=== PATIENT | male | born 1955 | race Caucasian/White ===

== ENCOUNTER 2018-02-04 17:33 | Emergency (ER) | END 2018-02-04 20:20 | disposition home or self-care (01) ==

== ENCOUNTER 2018-07-10 15:55 | Inpatient (IN) | payer MEDICARE ==
[~2018-07-10] VITALS: Ht 175.3 cm; Wt 109.4 kg
[~2018-07-10 15:55] MED LIST: ASPI-817 PO; BENA10TA4 PO; CARV6.2579 PO; FURO40TA4 PO; HYDR-3980 PO; ONDA4TAB14 PO; SPIR25TA PO
--- NOTE | 2018-07-10 17:02 | ERD ---
ER Documentation Chief Complaint Chief Complaint Complains of SOB Hx of CHF and HTN HPI 63-year-old man complains of increasing shortness of breath 3 weeks but states symptoms have been getting worse over the last couple of days. Last year he was diagnosed with heart failure and states he ran out of his medications including furosemide 3 months ago. He has had increasing dyspnea on exertion, orthopnea, paroxysmal nocturnal dyspnea and lower extremity edema. Patient denies fevers or chills, no cough, no chest pain, no vomiting or diarrhea. ROS All systems reviewed and are negative except as per history of present illness. Medications Home Meds Discontinued Reported Medications Carvedilol* (Carvedilol*) 6.25 Mg Tablet, 6.25 MG PO BID, #60 TAB 02/04/18 Aspirin* (Aspirin* EC) 81 Mg Tablet.dr, 81 MG PO DAILY, TAB 02/04/18 Benazepril Hcl* (Benazepril Hcl*) 10 Mg Tablet, 10 MG PO BID, #60 TAB 02/04/18 Furosemide* (Furosemide*) 40 Mg Tablet, 40 MG PO DAILY, TAB 02/04/18 Spironolactone* (Aldactone*) 25 Mg Tablet, 25 MG PO DAILY, #30 TAB 02/04/18 Discontinued Scripts Ondansetron (Ondansetron Odt) 4 Mg Tab.rapdis, 4 MG PO Q6H PRN for NAUSEA AND/OR VOMITING, #10 TAB Prov:HERB SCOTT MD 02/04/18 Hydrocodone/Acetaminophen (Avery 10-325 Tablet) 1 Each Tablet, 1 TAB PO Q6H PRN for PAIN, #7 TAB Prov:HERB SCOTT MD 02/04/18 Allergies Allergies: Coded Allergies: No Known Allergy (Unverified , 07/10/18) PMhx/Soc Hypertension, inguinal hernia, CHF Hx Alcohol Use: Yes (years ago) Hx Tobacco Use: No FmHx Family History: No diabetes Physical Exam Vitals Vital Signs Date Temp Pulse Resp B/P (MAP) Pulse Ox O2 O2 Flow FiO2 Time Delivery Rate 07/10/18 67 18 169/98 100 Nasal 3.0 18:22 (121) Cannula 07/10/18 98.5 74 20 192/106 97 16:01 (134) Physical Exam GENERAL: Well-developed, well-nourished, dyspneic tachypnea, afebrile HEENT: Moist mucous membranes, pink conjunctiva, no cervical spine tenderness or step-off deformities, no goiter, no jaundice or icterus, extraocular movements intact without pain. No submandibular induration, and no pharyngeal erythema NEURO: Alert and oriented 3, cranial nerves II through XII intact bilaterally, pupils equal round reactive to light, no focal deficits or facial asymmetry, se nsation intact distally Strength 5/5 in upper and lower extremities bilaterally CARDIAC: Regular rate and rhythm, no murmurs rubs or gallops LUNGS: Crackles bilaterally, no wheezing or stridor ABDOMEN: Soft nontender, no guarding, no rigidity, no rebound, no psoas sign no obturator sign. SKIN: Warm and dry to touch, no abrasions, contusions, or hematomas, no lacerations, no ecchymosis, no target lesions, and without ulcers EXTREMITIES: No clubbing cyanosis, 3+ pitting edema in the lower extremities bilaterally, calves are bilaterally symmetrical, no Homans sign, no popliteal cord sign. Distal pulses equal and bilateral PSYCH: Normal affect without agitation or irritability Result Diagram: 07/10/18 1727 07/10/18 172 Results 24 hrs Laboratory Tests Test 07/10/18 17:27 White Blood Count 6.8 10^3/ul Red Blood Count 4.53 10^6/ul Hemoglobin 10.2 g/dl Hematocrit 36.5 % Mean Corpuscular Volume 80.6 fl Mean Corpuscular Hemoglobin 22.5 pg Mean Corpuscular Hemoglobin Concent 27.9 g/dl Red Cell Distribution Width 16.4 % Platelet Count 224 10^3/UL Mean Platelet Volume 10.0 fl Immature Granulocytes % 0.100 % Neutrophils % 74.0 % Lymphocytes % 14.9 % Monocytes % 8.8 % Eosinophils % 1.2 % Basophils % 1.0 % Nucleated Red Blood Cells % 0.0 /100WBC Immature Granulocytes # 0.010 10^3/ul Neutrophils # 5.0 10^3/ul Lymphocytes # 1.0 10^3/ul Monocytes # 0.6 10^3/ul Eosinophils # 0.1 10^3/ul Basophils # 0.1 10^3/ul Nucleated Red Blood Cells # 0.0 10^3/ul Sodium Level 142 mmol/L Potassium Level 4.7 mmol/L Chloride Level 102 mmol/L Carbon Dioxide Level 29 mmol/L Anion Gap 11 Blood Urea Nitrogen 19 mg/dl Creatinine 0.57 mg/dl Est Glomerular Filtrat Rate mL/min > 60 mL/min Glucose Level 103 mg/dl Calcium Level 8.9 mg/dl Total Bilirubin 1.3 mg/dl Direct Bilirubin 0.00 mg/dl Indirect Bilirubin 1.3 mg/dl Aspartate Amino Transf (AST/SGOT) 21 IU/L Alanine Aminotransferase (ALT/SGPT) 22 IU/L Alkaline Phosphatase 94 IU/L Troponin I 0.017 ng/ml B-Type Natriuretic Peptide 2200 PG/ML Total Protein 7.0 g/dl Albumin 3.8 g/dl Globulin 3.20 g/dl Albumin/Globulin Ratio 1.18 Lipase 76 U/L Current Medications Medications Dose Sig/Melanie Start Time Status Last (Trade) Ordered Route PRN Stop Time Admin Dose Reason Admin Furosemide 60 mg ONCE ONCE 07/10/18 DC 07/10/18 (Lasix) IV 17:30 17:32 07/10/18 17:31 Aspirin 324 mg ONCE ONCE 07/10/18 DC 07/10/18 (Aspirin) PO 17:30 17:33 07/10/18 17:31 Enalaprilat 1.25 mg ONCE ONCE 07/10/18 DC 07/10/18 (Vasotec Iv) IV 17:30 17:33 07/10/18 17:31 1 tab ONCE ONCE 07/10/18 DC 07/10/18 Nitroglycerin SL 17:30 17:33 07/10/18 17:31 (Nitroglyceri n (Sl Tab) 0.4 Mg) Procedures/[facility] IV line was established patient was placed on monitoring engineer rhythm strip revealed a sinus rhythm at about 70 bpm with upright P and T waves. Patient was afebrile EKG performed, read by me revealed a normal sinus rhythm at 69 bpm, normal axis, narrow QRS complex, no concerning ST elevations or depressions noted 1 view chest x-ray performed, read by me revealed cardiomegaly and bilateral pulmonary edema, no acute infiltrates, no pneumothorax I administered aspirin 324 mg p.o. for cardioprotective measures, furosemide 60 mg IV, nitroglycerin 0.4 mg sublingual, and enalapril 1.25 mg IV for d ecompensated heart failure and hypertension CBC and electrolytes were normal, liver function tests normal, troponin negative, BNP elevated over 1999 consistent with CHF Patient's breathing and hypertension has improved although he remains symptomatic he will be admitted to telemetry setting for continued diuresis Departure Diagnosis: Primary Impression: CHF (congestive heart failure) Heart failure type: combined systolic and diastolic Heart failure chronicity: acute Qualified Codes: I50.41 - Acute combined systolic (congestive) and diastolic (congestive) heart failure Additional Impressions: Hypertensive emergency Peripheral edema Condition: Fair ZAHIRA BERNAL MD Jul 10, 2018 17:02
[2018-07-10] MEDS ORDERED: ASPIRIN 81 MG TAB PO ONE (17:30)
[2018-07-10] MEDS ORDERED: FUROSEMIDE 40 MG INJ IV ONE (17:30)
[2018-07-10] MEDS ORDERED: NITROGLYCERIN (SL) 0.4 MG TAB SL ONE (17:30)
[2018-07-10] MEDS ORDERED: ENALAPRILAT 1.25 MG INJ IV ONE (17:30)
[2018-07-10] MEDS ORDERED: DOCUSATE SODIUM 100 MG CAP PO PRN (19:00)
[2018-07-10] MEDS ORDERED: ALBUTEROL/IPRATROPIUM (NEB) 3 ML AMP HHN PRN (19:00)
[2018-07-10] MEDS ORDERED: MAGNESIUM HYDROXIDE 30ML CUP PO PRN (19:00)
[2018-07-10] MEDS ORDERED: LORAZEPAM 2 MG INJ IV PRN (19:00)
[2018-07-10] MEDS ORDERED: NITROGLYCERIN (SL) 0.4 MG TAB SL PRN (19:00)
[2018-07-10] MEDS ORDERED: hydrALAzine 20 MG INJ IV PRN (19:00)
[2018-07-10] MEDS ORDERED: NACL 0.9% 3 ML SYG IV SCH (19:00)
[2018-07-10] MEDS ORDERED: ONDANSETRON 4 MG INJ IV PRN (19:00)
[2018-07-10] MEDS ORDERED: morphine 2 MG INJ IV PRN (19:00)
[2018-07-10] MEDS ORDERED: ACETAMINOPHEN 325 MG TAB PO PRN (19:00)
--- NOTE | 2018-07-10 19:51 | HP ---
DATE OF ADMISSION: 07/10/2018 IDENTIFICATION: This is a 63-year-old male. CHIEF COMPLAINT: Shortness of breath. HISTORY OF PRESENT ILLNESS: A 63-year-old male with past medical history of hypertension, likely CHF , noncompliant with medications for the last 3 months, inguinal hernia, who has been having shortness of breath. The symptoms have been going on for the last 3 to 4 weeks, but getting worse over the la st couple of days. He has noticed some more swelling in his lower extremities. He says he was hospi talized, looks like at [facility] or [facility] back in 02/2018 for what he says is hypertension and likely CHF, although he denies being told he has ever had CHF. No prior history of any stroke or heart attacks. Presently, no upper or lower GI bleeding. No fevers or chills. No nausea, vomiting. No diarrhea or constipation. No chest pain. He does have positive PND and likel y positive orthopnea. When he came in today on his chest x-ray he had moderate to severe cardiomegal y with mild aortic calcifications, but no evidence of any acute cardiopulmonary disease; however he d oes have 2+ swelling in his lower extremities and his BNP was elevated at 2200, so he came in, signs of likely CHF exacerbation. He also had a blood pressure of 192/106 and signs of hypertensive urgenc y. Again, he has not been taking any medicines for the last 3 months. PAST MEDICAL HISTORY: As stated above. ALLERGIES: NO KNOWN DRUG ALLERGIES. HOME MEDICATIONS: The patient did bring in incomplete list which did include: 1. Lasix looks like 40 mg. 2. Coreg 6.25 mg b.i.d. 3. Benazepril 10 mg. 4. Advair 250/50 inhaled b.i.d. Again he has not been taking his medicines for the last 3 months. PAST SURGICAL HISTORY: None. SOCIAL HISTORY: Former smoker, quit 15 years ago. Occasional alcohol use socially. Denies any IV d rug abuse. FAMILY HISTORY: Noncontributory. PHYSICAL EXAMINATION: VITAL SIGNS: Today, T-max 98.5, pulse 67 to 74, respirations 18 to 20, blood pressure 192 to 169 sys tolic over 106 to 98 diastolic, saturating at 100% on 3 liters nasal cannula. GENERAL: Shows the patient to be lying in bed, answering questions appropriately, in no acute distre ss. HEENT: Pupils are equal, round, react to light. Extraocular muscles are intact. NECK: Supple. No thyromegaly. LUNGS: Positive crackles bilaterally at the bases. No wheezes. CARDIOVASCULAR: S1 and S2 heard. No rubs, no gallops. ABDOMEN: Soft, nontender, nondistended. Normal bowel sounds. No rebound. No guarding. MUSCULOSKELETAL: A 2+ pitting edema bilateral lower extremities to the mid calves. NEUROLOGIC: No focal deficits. LABORATORIES: CBC is normal. The comprehensive metabolic panel was normal. Troponin is negative x1 . Lipase is normal. We mentioned the BNP. IMAGING: We mentioned the chest x-ray findings. ASSESSMENT AND PLAN: A 63-year-old male coming in with shortness of breath worse over the last few d ays with noncompliance with his medications and hypertensive urgency, signs of congestive heart failu re exacerbations. 1. Shortness of breath again secondary to congestive heart failure, most likely given his elevated B [employer]ING [employer] and lower extremity swelling. Admit the patient. Keep the head of the bed elevated greater than 30 degrees. We will put him on Lasix IV b.i.d., morphine p.r.n., oxygen as needed and nitroglycerin as needed. Put him on low-dose beta r[place] for now and get an echocardiogram. Monitor his ins and outs, daily weights as well and get PT consult as well. Get cardiology consult as well. 2. Hypertensive urgency. Again, blood pressure is slightly improved since he has been in the ER. H e will be on hydralazine p.r.n. systolic greater than 160 and also on low-dose Coreg and also IV Lasi x medication. 3. History of inguinal hernia. Continue to monitor for now. If there is any worsening of his sympt oms, we will consider surgery consult at that time. 4. Gastrointestinal prophylaxis, PPI. 5. Deep venous thrombosis prophylaxis, heparin subcutaneously. Dictated By: ANGELA PHELPS Conf#: [id number] DID#: [id number] CC: HERB TOBAR DO; ZAHIRA BERNAL MD;*End*
[2018-07-10 20:48] VITALS: PULSE 78
[2018-07-10 21:00] VITALS: BP 160/80; PULSE 73; RESP 22; Ht 175.3 cm; Wt 109.4 kg
[2018-07-10] MEDS: FUROSEMIDE 40 MG INJ IV SCH (21:00)
[2018-07-10] MEDS: HYDROCODONE/APAP (5/325) TAB PO PRN (21:41)
[2018-07-10] MEDS: ZOLPIDEM 5 MG TAB PO PRN (23:39)
[2018-07-10] MEDS: HEPARIN 5,000 UNIT/1 ML VIAL SC SCH (23:48)
[2018-07-11] VITALS (11 sets, daily range): BP systolic 113–173; BP diastolic 61–88; PULSE 59–95; RESP 18–20
[2018-07-11] MEDS: PANTOPRAZOLE (EC) 40 MG TAB PO SCH (06:01)
[2018-07-11] MEDS: FUROSEMIDE 40 MG INJ IV SCH (06:02)
--- NOTE | 2018-07-11 08:26 | PN ---
Date/Time of Note Date/Time of Note DATE: 07/11/18 TIME: 08:25 Assessment/Plan VTE Prophylaxis SCD applied (from Ns): No SCD contraindicated: other Pharmacological prophylaxis: heparin Lines/Catheters IV [facility]ter [facility]from [facility] [place]ine Lock Assessment/Plan Hospital Course S: No acute events overnight, less SOB. O: VS - see below PHYSICAL EXAMINATION: GENERAL: lying in bed, no acute distress. HEENT: Pupils are equal, round, react to light. Extraocular muscles are intact. NECK: Supple. No thyromegaly. LUNGS: less crackles bilaterally at the bases. No wheezes. CARDIOVASCULAR: S1 and S2 heard. No rubs, no gallops. ABDOMEN: Soft, nontender, nondistended. Normal bowel sounds. No rebound. No guarding. MUSCULOSKELETAL: 1-2+ pitting edema bilateral lower extremities to the mid calves. NEUROLOGIC: No focal deficits. ASSESSMENT AND PLAN: 63-year-old male coming in with shortness of breath worse over the last few days with noncompliance with his medications and hypertensive urgency, signs of congestive heart failure exacerbations. 1. Shortness of breath - slowly improving - again secondary to acute congestive heart failure - continue to keep the head of the bed elevated greater than 30 degrees, Lasix IV b.i.d., morphine p.r.n., oxygen as needed and nitroglycerin as needed. - continue low-dose beta r[place] for now and get an echocardiogram. - Monitor his ins and outs, daily weights as well and get PT consult as well. - f/u rec's from cardiology consult and ECHO results. 2. Hypertensive urgency- resolved. - continue hydralazine p.r.n. systolic greater than 160 and also on low-dose Coreg and also IV Lasix medication. 3. History of inguinal hernia. Continue to monitor for now. If there is any worsening of his symptoms, we will consider surgery consult at that time. 4. Gastrointestinal prophylaxis, PPI. 5. Deep venous thrombosis prophylaxis, heparin subcutaneously. Result Diagram: 07/11/18 0553 07/11/18 0553 Results 24hrs Laboratory Tests Test 07/10/18 17:27 07/11/18 05:53 White Blood Count 6.8 5.8 Red Blood Count 4.53 L 4.25 L Hemoglobin 10.2 #L 9.7 L Hematocrit 36.5 L 33.9 L Mean Corpuscular Volume 80.6 L 79.8 L Mean Corpuscular Hemoglobin 22.5 L 22.8 L Mean Corpuscular Hemoglobin Concent 27.9 L 28.6 L Red Cell Distribution Width 16.4 H 16.5 H Platelet Count 224 204 Mean Platelet Volume 10.0 10.3 Immature Granulocytes % 0.100 0.300 Neutrophils % 74.0 62.8 Lymphocytes % 14.9 L 23.0 Monocytes % 8.8 10.4 Eosinophils % 1.2 1.9 Basophils % 1.0 1.6 Nucleated Red Blood Cells % 0.0 0.0 Immature Granulocytes # 0.010 0.020 Neutrophils # 5.0 3.6 Lymphocytes # 1.0 1.3 Monocytes # 0.6 0.6 Eosinophils # 0.1 0.1 Basophils # 0.1 0.1 Nucleated Red Blood Cells # 0.0 0.0 Sodium Level 142 142 Potassium Level 4.7 3.9 Chloride Level 102 103 Carbon Dioxide Level 29 30 Anion Gap 11 9 Blood Urea Nitrogen 19 24 H Creatinine 0.57 L 0.63 Est Glomerular Filtrat Rate mL/min > 60 > 60 Glucose Level 103 88 Calcium Level 8.9 8.7 Total Bilirubin 1.3 Direct Bilirubin 0.00 Indirect Bilirubin 1.3 H Aspartate Amino Transf (AST/SGOT) 21 Alanine Aminotransferase (ALT/SGPT) 22 Alkaline Phosphatase 94 Troponin I 0.017 B-Type Natriuretic Peptide 2200 H Total Protein 7.0 Albumin 3.8 Globulin 3.20 Albumin/Globulin Ratio 1.18 Lipase 76 Hemoglobin A1c 6.1 H Phosphorus Level 4.1 Magnesium Level 1.8 Triglycerides Level 39 Cholesterol Level 98 L LDL Cholesterol, Calculated 57 HDL Cholesterol 33 Cholesterol/HDL Ratio 2.9 Thyroid Stimulating Hormone (TSH) 2.020 Free Thyroxine 1.37 Exam/Review of Systems Exam Vitals Vital Signs Date Temp Pulse Resp B/P (MAP) Pulse Ox O2 O2 Flow FiO2 Time Delivery Rate 07/11/18 60 08:00 07/11/18 98.2 20 158/84 95 Nasal 2.0 05:00 (108) Cannula Intake and Output 07/10/18 07/10/18 07/11/18 1515:00 23:00 07:00 IntakeIntake Total 150 ml OutputOutput Total 1000 ml 1100 ml BalanceBalance -1000 ml -950 ml Results Results 24hrs Laboratory Tests Test 07/10/18 17:27 07/11/18 05:53 White Blood Count 6.8 5.8 Red Blood Count 4.53 L 4.25 L Hemoglobin 10.2 #L 9.7 L Hematocrit 36.5 L 33.9 L Mean Corpuscular Volume 80.6 L 79.8 L Mean Corpuscular Hemoglobin 22.5 L 22.8 L Mean Corpuscular Hemoglobin Concent 27.9 L 28.6 L Red Cell Distribution Width 16.4 H 16.5 H Platelet Count 224 204 Mean Platelet Volume 10.0 10.3 Immature Granulocytes % 0.100 0.300 Neutrophils % 74.0 62.8 Lymphocytes % 14.9 L 23.0 Monocytes % 8.8 10.4 Eosinophils % 1.2 1.9 Basophils % 1.0 1.6 Nucleated Red Blood Cells % 0.0 0.0 Immature Granulocytes # 0.010 0.020 Neutrophils # 5.0 3.6 Lymphocytes # 1.0 1.3 Monocytes # 0.6 0.6 Eosinophils # 0.1 0.1 Basophils # 0.1 0.1 Nucleated Red Blood Cells # 0.0 0.0 Sodium Level 142 142 Potassium Level 4.7 3.9 Chloride Level 102 103 Carbon Dioxide Level 29 30 Anion Gap 11 9 Blood Urea Nitrogen 19 24 H Creatinine 0.57 L 0.63 Est Glomerular Filtrat Rate mL/min > 60 > 60 Glucose Level 103 88 Calcium Level 8.9 8.7 Total Bilirubin 1.3 Direct Bilirubin 0.00 Indirect Bilirubin 1.3 H Aspartate Amino Transf (AST/SGOT) 21 Alanine Aminotransferase (ALT/SGPT) 22 Alkaline Phosphatase 94 Troponin I 0.017 B-Type Natriuretic Peptide 2200 H Total Protein 7.0 Albumin 3.8 Globulin 3.20 Albumin/Globulin Ratio 1.18 Lipase 76 Hemoglobin A1c 6.1 H Phosphorus Level 4.1 Magnesium Level 1.8 Triglycerides Level 39 Cholesterol Level 98 L LDL Cholesterol, Calculated 57 HDL Cholesterol 33 Cholesterol/HDL Ratio 2.9 Thyroid Stimulating Hormone (TSH) 2.020 Free Thyroxine 1.37 Medications Medication Current Medications IV Flush (NS 3 ml) 3 ml PER PROTOCOL IV ; Start 07/10/18 at 19:00 Ondansetron HCl (Zofran Inj) 4 mg Q6H PRN IV NAUSEA/VOMITING; Start 07/10/18 at 19:00 Acetaminophen (Tylenol Tab) 650 mg Q6H PRN PO .PAIN 1-3 OR TEMP; Start 07/10/18 at 19:00 Acetaminophen/ Hydrocodone Bitart (Salyer (5/325)) 1 tab Q6H PRN PO .MOD PAIN 4- 6 Last administered on 07/10/18at 21:41; Admin Dose 1 TAB; Start 07/10/18 at 19:00 Morphine Sulfate (morphine) 2 mg Q4H PRN IV .SEVERE PAIN 7-10; Start 07/10/18 at 19:00 Docusate Sodium (Colace) 100 mg Q12H PRN PO .CONSTIPATION; Start 07/10/18 at 19:00 Magnesium Hydroxide (Milk Of Mag) 30 ml DAILY PRN PO .CONSTIPATION; Start 07/10/18 at 19:00 Pantoprazole (Protonix Tab) 40 mg DAILY@06 PO Last administered on 07/11/18at 06:01; Admin Dose 40 MG; Start 07/11/18 at 06:00 Heparin Sodium (Porcine) (Heparin (5000 Units/1ml)) 5,000 unit Q12 SC Last administered on 07/10/18at 23:48; Admin Dose 5,000 UNIT; Start 07/10/18 at 21:00 Lorazepam (Ativan) 0.5 mg Q6H PRN IV ANXIETY; Start 07/10/18 at 19:00 Albuterol/ Ipratropium (Duoneb) 3 ml Q4H RESP THERAPY PRN HHN SHORTNESS OF BREATH; Start 07/10/18 at 19:00 Levofloxacin/ Dextrose 150 ml @ 100 mls/hr DAILY IVPB ; Start 07/11/18 at 09:00 Hydralazine HCl (Apresoline) 10 mg Q6H PRN IV ELEVATED BLOOD PRESSURE; Start 07/10/18 at 19:00 Nitroglycerin (Nitroglycerin (Sl Tab) 0.4 Mg) 1 tab Q5M PRN SL ANGINA; Start 07/10/18 at 19:00 Furosemide (Lasix) 40 mg BID DIURETICS IV Last administered on 07/11/18at 06:02; Admin Dose 40 MG; Start 07/10/18 at 21:00 Carvedilol (Coreg) 3.125 mg BID PO Last administered on 07/10/18at 20:16; Admin Dose 3.125 MG; Start 07/10/18 at 19:30 Zolpidem Tartrate (Ambien) 2.5 mg HS PRN PO INSOMNIA Last administered on 07/10/18at 23:39; Admin Dose 2.5 MG; Start 07/10/18 at 19:30 ANGELA SHAH Jul 11, 2018 08:26
[2018-07-11] MEDS ORDERED: FUROSEMIDE 40 MG INJ IV SCH (09:00)
[2018-07-11] MEDS: LEVOFLOXACIN 750MG/D5W (PMX) 150 ML IVPB SCH (09:32)
[2018-07-11] MEDS: HEPARIN 5,000 UNIT/1 ML VIAL SC SCH ×2 (09:33→21:00)
--- NOTE | 2018-07-11 09:52 | RADRPT ---
Echocardiogram Report Patient Name: BRENTON CHANGPatient ID: [id number] : 1955 (63y 6m)Study Date: 07/11/2018 7:03:38 AM Gender: MAccession #: [id number] Tech: Marlee Uriarte [facility] Location: 0899 Ref.Physician: ANGELA SHAH Height(Cm): BSA: Weight(Kg): Quality: AdequateAccount #: Procedures: Echocardiographic Report: Transthoracic echocardiogram with complete 2D, M-Mode, and doppler examination. Indications: Acute Congestive Heart Failure. Measurements: 2D/M Mode Doppler Measurement Value Normal Range Measurement Value Normal Range LVIDd 2D 5.4 [ 4.2 - 5.8 ] cm AV Peak Kris 1.6 [ 100.0 - 170.0 ] cm/sec LVIDs 2D 3.6 [ 2.5 - 4.0 ] cm AV Peak PG 11.0 [ 2.0 - 9.0 ] mmHg LVPWd 2D 1.5 [ 0.6 - 1.0 ] cm LVOT Peak Kris 1.0 [ 70.0 - 110.0 ] cm/sec IVSd 2D 1.4 [ 0.6 - 1.0 ] cm LVOT Peak PG 4.0 [ 2.0 - 6.0 ] mmHg AoR Diam 2D 3.3 [ 2.6 - 3.4 ] cm MV E Peak Kris 1.0 [ 60.0 - 130.0 ] cm/sec EDV 2D 140.0 [ 62.0 - 150.0 ] ml MV A Peak Kris 0.6 [ 100.0 - 120.0 ] cm/sec ESV 2D 53.3 [ 21.0 - 61.0 ] ml MV E/A 1.7 [ 0.8 - 1.5 ] ratio EF 2D 61.9 [ 52.0 - 72.0 ] percent MV Decel Time 215 [ 104 - 258 ] msec LA Dimen 2D 4.9 [ 3.0 - 4.0 ] cm Lat E` Kris 0.2 [ 10.0 - 15.0 ] cm/sec Lateral E/E` 6.4 [ 1.0 - 2.0 ] ratio MV E/A 1.7 [ 0.8 - 1.5 ] ratio TR Peak Kris 2.1 [ 100.0 - 280.0 ] cm/sec TR Peak PG 17.0 mmHg RVSP 25.0 [ 10.0 - 36.0 ] mmHg RA Pressure 8.0 mmHg Findings: Left Ventricle: Normal left ventricular systolic function. Normal left ventricular cavity size. Moderate concentric left ventricular hypertrophy. Ejection fraction is visually estimated at 60 %. Tissue Doppler/Mitral Doppler indices are consistent with pseudonormalization with mildly elevated left atrial pressure (Stage II diastolic dysfunction). Right Ventricle: Normal right ventricular size. Normal right ventricular systolic function. Left Atrium: There is moderate enlargement of left atrium. Right Atrium: There is mild enlargement of right atrium. Mitral Valve: Mitral valve leaflets appear mildly thickened. Mild mitral annular calcification. Mild mitral valve regurgitation. Aortic Valve: Normal appearance of the aortic valve. No significant aortic stenosis or insufficiency. Tricuspid Valve: Normal appearance of the tricuspid valve. Estimated peak PA systolic pressure 25 mmHg. There is trace tricuspid regurgitation. Pulmonic Valve: Normal pulmonic valve appearance. Pericardium: Normal pericardium with no significant pericardial effusion. Pleural effusion seen. Aorta: Normal aortic root. IVC: Dilated IVC with respiratory collapse consistent with elevated right atrial pressure. Conclusions: Normal left ventricular systolic function. Normal left ventricular cavity size. Moderate concentric left ventricular hypertrophy. Ejection fraction is visually estimated at 60 %. Tissue Doppler/Mitral Doppler indices are consistent with pseudonormalization with mildly elevated left atrial pressure (Stage II diastolic dysfunction). Normal right ventricular size. Normal right ventricular systolic function. There is moderate enlargement of left atrium. There is mild enlargement of right atrium. Mild mitral valve regurgitation. No significant valvular stenosis or regurgitation seen of remaining visualized valves. Normal pericardium with no significant pericardial effusion. Pleural effusion seen. Electronically Signed By: Brenton Odom 2018-07-11 09:51:59 PDT
--- NOTE | 2018-07-11 09:59 | CONS ---
Assessment/Plan Cardiology NYHA: II Heart Failure Type: Acute on Chronic Heart Failure Type: Diastolic Assessment/Plan Hospital Course (Demo Recall) Acute decompensated diastolic congestive heart failure Preserved ejection fraction with diastolic dysfunction Hypertension, uncontrolled Mitral valve regurgitation Poor medication compliance -Patient presents with progressive worsening shortness of breath, lower extremity edema and increased abdominal girth going on for months. Patient does admit to noncompliance with medications for months. -He does have evidence of significant volume overload. -I will increase his diuretic regimen for today, will start WENCESLAO inhibitor, in creased dose of carvedilol -Check serial cardiac enzymes -Counseled on the importance of medication compliance. -Would request dietary involvement for CHF, low-sodium diet recommendations Consultation Date/Type/Reason Admit Date/Time Jul 10, 2018 at 18:11 Type of Consult Cardiology Reason for Consultation Shortness of breath and lower extremity edema for months Date/Time of Note DATE: 07/11/18 TIME: 09:55 Hx of Present Illness This is a 63-year-old male with past medical history of congestive heart failure, hypertension who presents with progressive worsening shortness of breath, increased abdominal girth and lower extremity edema going on for months. Symptoms are worse with exertion of shortness of breath as well as lying down flat. Patient admits to stopping his medications approximately 3 months ago because he ran out. He also has not been compliant with his Lasix secondary to frequent urination after taking. He does feel better after receiving Lasix in the emergency room. Denies any current chest pain, palpitations, dizziness or lightheadedness. He denies exertional chest pain. Denies any fevers or chills or cough. 12 point review of systems was performed with all pertinent positives and negatives mentioned above and all else is negative Past Medical History Medical History: congestive heart failure, hypertension Home Meds Discontinued Reported Medications Carvedilol* (Carvedilol*) 6.25 Mg Tablet, 6.25 MG PO BID, #60 TAB 02/04/18 Aspirin* (Aspirin* EC) 81 Mg Tablet.dr, 81 MG PO DAILY, TAB 02/04/18 Benazepril Hcl* (Benazepril Hcl*) 10 Mg Tablet, 10 MG PO BID, #60 TAB 02/04/18 Furosemide* (Furosemide*) 40 Mg Tablet, 40 MG PO DAILY, TAB 02/04/18 Spironolactone* (Aldactone*) 25 Mg Tablet, 25 MG PO DAILY, #30 TAB 02/04/18 Discontinued Scripts Ondansetron (Ondansetron Odt) 4 Mg Tab.rapdis, 4 MG PO Q6H PRN for NAUSEA AND/OR VOMITING, #10 TAB Prov:HREB SCOTT MD 02/04/18 Hydrocodone/Acetaminophen ([place] 10-325 Tablet) 1 Each Tablet, 1 TAB PO Q6H PRN for PAIN, #7 TAB Prov:HERB SCOTT MD 02/04/18 Medications Current Medications IV Flush (NS 3 ml) 3 ml PER PROTOCOL IV ; Start 07/10/18 at 19:00 Ondansetron HCl (Zofran Inj) 4 mg Q6H PRN IV NAUSEA/VOMITING; Start 07/10/18 at 19:00 Acetaminophen (Tylenol Tab) 650 mg Q6H PRN PO .PAIN 1-3 OR TEMP; Start 07/10/18 at 19:00 Acetaminophen/ Hydrocodone Bitart ([place] (5/325)) 1 tab Q6H PRN PO .MOD PAIN 4- 6 Last administered on 07/10/18at 21:41; Admin Dose 1 TAB; Start 07/10/18 at 19:00 Morphine Sulfate (morphine) 2 mg Q4H PRN IV .SEVERE PAIN 7-10; Start 07/10/18 at 19:00 Docusate Sodium (Colace) 100 mg Q12H PRN PO .CONSTIPATION; Start 07/10/18 at 1 9:00 Magnesium Hydroxide (Milk Of Mag) 30 ml DAILY PRN PO .CONSTIPATION; Start 07/10/18 at 19:00 Pantoprazole (Protonix Tab) 40 mg DAILY@06 PO Last administered on 07/11/18at 06:01; Admin Dose 40 MG; Start 07/11/18 at 06:00 Heparin Sodium (Porcine) (Heparin (5000 Units/1ml)) 5,000 unit Q12 SC Last administered on 07/11/18at 09:33; Admin Dose 5,000 UNIT; Start 07/10/18 at 21:00 Lorazepam (Ativan) 0.5 mg Q6H PRN IV ANXIETY; Start 07/10/18 at 19:00 Albuterol/ Ipratropium (Duoneb) 3 ml Q4H RESP THERAPY PRN HHN SHORTNESS OF BREATH; Start 07/10/18 at 19:00 Levofloxacin/ Dextrose 150 ml @ 100 mls/hr DAILY IVPB Last administered on 07/11/18at 09:32; Admin Dose 100 MLS/HR; Start 07/11/18 at 09:00 Hydralazine HCl (Apresoline) 10 mg Q6H PRN IV ELEVATED BLOOD PRESSURE; Start 07/10/18 at 19:00 Nitroglycerin (Nitroglycerin (Sl Tab) 0.4 Mg) 1 tab Q5M PRN SL ANGINA; Start 07/10/18 at 19:00 Furosemide (Lasix) 40 mg BID DIURETICS IV Last administered on 07/11/18at 06:02; Admin Dose 40 MG; Start 07/10/18 at 21:00 Carvedilol (Coreg) 3.125 mg BID PO Last administered on 07/11/18at 09:32; Admin Dose 3.125 MG; Start 07/10/18 at 19:30 Zolpidem Tartrate (Ambien) 2.5 mg HS PRN PO INSOMNIA Last administered on 07/10/18at 23:39; Admin Dose 2.5 MG; Start 07/10/18 at 19:30 Allergies: Coded Allergies: No Known Allergy (Unverified , 07/10/18) Past Surgical History Past Surgical Hx: no surgical history Family History Significant Family History: no pertinent family hx Social History Alcohol Use: occasionally Smoking Status: Former smoker Exam/Review of Systems Vital Signs Vitals Vital Signs Date Temp Pulse Resp B/P (MAP) Pulse Ox O2 O2 Flow FiO2 Time Delivery Rate 07/11/18 60 08:00 07/11/18 98.2 20 158/84 95 Nasal 2.0 05:00 (108) Cannula Intake and Output 07/10/18 07/10/18 07/11/18 1515:00 23:00 07:00 IntakeIntake Total 150 ml OutputOutput Total 1000 ml 1100 ml BalanceBalance -1000 ml -950 ml Exam Constitutional: alert, oriented (No apparent distress, no dyspnea with speaking) Head: normocephalic Respiratory: other (Coarse breath sounds bilaterally, minimal scattered crackles, no wheezing) Cardiovascular: regular rate and rhythm (S1-S2 heard) Gastrointestinal: soft, non-tender, bowel sounds Extremities: edema Labs Result Diagram: 07/11/18 0553 07/11/18 0553 Results 24hrs Laboratory Tests Test 07/10/18 17:27 07/11/18 05:53 White Blood Count 6.8 5.8 Red Blood Count 4.53 L 4.25 L Hemoglobin 10.2 #L 9.7 L Hematocrit 36.5 L 33.9 L Mean Corpuscular Volume 80.6 L 79.8 L Mean Corpuscular Hemoglobin 22.5 L 22.8 L Mean Corpuscular Hemoglobin Concent 27.9 L 28.6 L Red Cell Distribution Width 16.4 H 16.5 H Platelet Count 224 204 Mean Platelet Volume 10.0 10.3 Immature Granulocytes % 0.100 0.300 Neutrophils % 74.0 62.8 Lymphocytes % 14.9 L 23.0 Monocytes % 8.8 10.4 Eosinophils % 1.2 1.9 Basophils % 1.0 1.6 Nucleated Red Blood Cells % 0.0 0.0 Immature Granulocytes # 0.010 0.020 Neutrophils # 5.0 3.6 Lymphocytes # 1.0 1.3 Monocytes # 0.6 0.6 Eosinophils # 0.1 0.1 Basophils # 0.1 0.1 Nucleated Red Blood Cells # 0.0 0.0 Sodium Level 142 142 Potassium Level 4.7 3.9 Chloride Level 102 103 Carbon Dioxide Level 29 30 Anion Gap 11 9 Blood Urea Nitrogen 19 24 H Creatinine 0.57 L 0.63 Est Glomerular Filtrat Rate mL/min > 60 > 60 Glucose Level 103 88 Calcium Level 8.9 8.7 Total Bilirubin 1.3 Direct Bilirubin 0.00 Indirect Bilirubin 1.3 H Aspartate Amino Transf (AST/SGOT) 21 Alanine Aminotransferase (ALT/SGPT) 22 Alkaline Phosphatase 94 Troponin I 0.017 B-Type Natriuretic Peptide 2200 H Total Protein 7.0 Albumin 3.8 Globulin 3.20 Albumin/Globulin Ratio 1.18 Lipase 76 Hemoglobin A1c 6.1 H Phosphorus Level 4.1 Magnesium Level 1.8 Triglycerides Level 39 Cholesterol Level 98 L LDL Cholesterol, Calculated 57 HDL Cholesterol 33 Cholesterol/HDL Ratio 2.9 Thyroid Stimulating Hormone (TSH) 2.020 Free Thyroxine 1.37 Imaging Imaging ECG with sinus rhythm at 69 bpm, QRS 94 ms, nonspecific T wave abnormalities Medications Medications Current Medications IV Flush (NS 3 ml) 3 ml PER PROTOCOL IV ; Start 07/10/18 at 19:00 Ondansetron HCl (Zofran Inj) 4 mg Q6H PRN IV NAUSEA/VOMITING; Start 07/10/18 at 19:00 Acetaminophen (Tylenol Tab) 650 mg Q6H PRN PO .PAIN 1-3 OR TEMP; Start 07/10/18 at 19:00 Acetaminophen/ Hydrocodone Bitart ([place] (5/325)) 1 tab Q6H PRN PO .MOD PAIN 4- 6 Last administered on 07/10/18at 21:41; Admin Dose 1 TAB; Start 07/10/18 at 19:00 Morphine Sulfate (morphine) 2 mg Q4H PRN IV .SEVERE PAIN 7-10; Start 07/10/18 at 19:00 Docusate Sodium (Colace) 100 mg Q12H PRN PO .CONSTIPATION; Start 07/10/18 at 19 :00 Magnesium Hydroxide (Milk Of Mag) 30 ml DAILY PRN PO .CONSTIPATION; Start 07/10/18 at 19:00 Pantoprazole (Protonix Tab) 40 mg DAILY@06 PO Last administered on 07/11/18at 06:01; Admin Dose 40 MG; Start 07/11/18 at 06:00 Heparin Sodium (Porcine) (Heparin (5000 Units/1ml)) 5,000 unit Q12 SC Last administered on 07/11/18at 09:33; Admin Dose 5,000 UNIT; Start 07/10/18 at 21:00 Lorazepam (Ativan) 0.5 mg Q6H PRN IV ANXIETY; Start 07/10/18 at 19:00 Albuterol/ Ipratropium (Duoneb) 3 ml Q4H RESP THERAPY PRN HHN SHORTNESS OF BREATH; Start 07/10/18 at 19:00 Levofloxacin/ Dextrose 150 ml @ 100 mls/hr DAILY IVPB Last administered on 07/11/18at 09:32; Admin Dose 100 MLS/HR; Start 07/11/18 at 09:00 Hydralazine HCl (Apresoline) 10 mg Q6H PRN IV ELEVATED BLOOD PRESSURE; Start 07/10/18 at 19:00 Nitroglycerin (Nitroglycerin (Sl Tab) 0.4 Mg) 1 tab Q5M PRN SL ANGINA; Start 07/10/18 at 19:00 Furosemide (Lasix) 40 mg BID DIURETICS IV Last administered on 07/11/18at 06:02; Admin Dose 40 MG; Start 07/10/18 at 21:00 Carvedilol (Coreg) 3.125 mg BID PO Last administered on 07/11/18at 09:32; Admin Dose 3.125 MG; Start 07/10/18 at 19:30 Zolpidem Tartrate (Ambien) 2.5 mg HS PRN PO INSOMNIA Last administered on 07/10/18at 23:39; Admin Dose 2.5 MG; Start 07/10/18 at 19:30 Herb Odom DO Jul 11, 2018 09:59
[2018-07-11] MEDS ORDERED: MAGNESIUM SULFATE 2 GM/50 ML 50 ML IVPB ONE (11:00)
[2018-07-11] MEDS ORDERED: BUMETANIDE 3 MG in DEXTROSE 5% 18 ML IV ONE (12:00)
[2018-07-11] MEDS ORDERED: BUMETANIDE 1 MG INJ IV ONE (12:00)
[2018-07-11] MEDS: HYDROCODONE/APAP (5/325) TAB PO PRN (12:06)
[2018-07-11] MEDS: ZOLPIDEM 5 MG TAB PO PRN (20:55)
[2018-07-11] MEDS: LISINOPRIL 5 MG TAB PO SCH (20:55)
[2018-07-12] VITALS (12 sets, daily range): BP systolic 97–142; BP diastolic 52–75; PULSE 58–72; RESP 16–18
[2018-07-12] MEDS: PANTOPRAZOLE (EC) 40 MG TAB PO SCH (06:14)
[2018-07-12] MEDS: FUROSEMIDE 40 MG INJ IV SCH ×2 (06:15→17:26)
[2018-07-12] MEDS: LISINOPRIL 5 MG TAB PO SCH ×2 (08:43→20:22)
[2018-07-12] MEDS: HEPARIN 5,000 UNIT/1 ML VIAL SC SCH ×2 (08:46→20:28)
[2018-07-12] MEDS: LEVOFLOXACIN 750MG/D5W (PMX) 150 ML IVPB SCH (09:12)
[2018-07-12] MEDS: HYDROCODONE/APAP (5/325) TAB PO PRN (10:23)
--- NOTE | 2018-07-12 13:36 | PN ---
Date/Time of Note Date/Time of Note DATE: 07/12/18 TIME: 13:33 Assessment/Plan VTE Prophylaxis Risk score (from [facility] [place]0 risk: 5 SCD applied (from [facility] [place]): No SCD contraindicated: other Pharmacological prophylaxis: heparin Lines/Catheters IV Catheter Type (from [facility]): [place] Assessment/Plan Hospital Course S: No acute events overnight, less SOB. Received Bumex yesterday. O: VS - see below PHYSICAL EXAMINATION: GENERAL: lying in bed, no acute distress. HEENT: Pupils are equal, round, react to light. Extraocular muscles are intact. NECK: Supple. No thyromegaly. LUNGS: less crackles bilaterally at the bases. No wheezes. CARDIOVASCULAR: S1 and S2 heard. No rubs, no gallops. ABDOMEN: Soft, nontender, nondistended. Normal bowel sounds. No rebound. No guarding. MUSCULOSKELETAL: 1-2+ pitting edema bilateral lower extremities to the mid calves. NEUROLOGIC: No focal deficits. 2D echo: Conclusions: Normal left ventricular systolic function. Normal left ventricular cavity size. Moderate concentric left ventricular hypertrophy. Ejection fraction is visually estimated at 60 %. Tissue Doppler/Mitral Doppler indices are consistent with pseudonormalization with mildly elevated left atrial pressure (Stage II diastolic dysfunction). Normal right ventricular size. Normal right ventricular systolic function. There is moderate enlargement of left atrium. There is mild enlargement of right atrium. Mild mitral valve regurgitation. No significant valvular stenosis or regurgitation seen of remaining visualized valves. Normal pericardium with no significant pericardial effusion. Pleural effusion seen. ASSESSMENT AND PLAN: 63-year-old male coming in with shortness of breath worse over the last few days with noncompliance with his medications and hypertensive urgency, signs of congestive heart failure exacerbations. 1. Shortness of breath - slowly improving - again secondary to acute decompensated diastolic congestive heart failure - continue to keep the head of the bed elevated greater than 30 degrees, Lasix IV b.i.d., morphine p.r.n., oxygen as needed and nitroglycerin as needed. - continue beta [place], WENCESLAO inhibitor - Monitor his ins and outs, daily weights, continue PT - f/u rec's from cardiology consult 2. Hypertensive urgency- resolved. - continue current medications, follow-up cardiology recommendations 3. History of inguinal hernia. Continue to monitor for now. If there is any worsening of his symptoms, we will consider surgery consult at that time. 4. Gastrointestinal prophylaxis, PPI. 5. Deep venous thrombosis prophylaxis, heparin subcutaneously. Result Diagram: 07/12/1839 07/12/18 0539 Results 24hrs Laboratory Tests Test 07/12/18 05:39 White Blood Count 6.1 Red Blood Count 4.33 L Hemoglobin 9.7 L Hematocrit 34.4 L Mean Corpuscular Volume 79.4 L Mean Corpuscular Hemoglobin 22.4 L Mean Corpuscular Hemoglobin Concent 28.2 L Red Cell Distribution Width 16.4 H Platelet Count 211 Mean Platelet Volume 10.2 Immature Granulocytes % 0.200 Neutrophils % 66.0 Lymphocytes % 19.9 Monocytes % 10.2 Eosinophils % 2.5 Basophils % 1.2 Nucleated Red Blood Cells % 0.0 Immature Granulocytes # 0.010 Neutrophils # 4.0 Lymphocytes # 1.2 Monocytes # 0.6 Eosinophils # 0.2 Basophils # 0.1 Nucleated Red Blood Cells # 0.0 Sodium Level 138 Potassium Level 3.8 Chloride Level 98 Carbon Dioxide Level 35 H Anion Gap 5 Blood Urea Nitrogen 27 H Creatinine 0.69 Est Glomerular Filtrat Rate mL/min > 60 Glucose Level 97 Calcium Level 8.7 Exam/Review of Systems Exam Vitals Vital Signs Date Temp Pulse Resp B/P (MAP) Pulse Ox O2 O2 Flow FiO2 Time Delivery Rate 07/12/18 58 12:14 07/12/18 98.3 16 97/52 (67) 92 Room Air 11:25 07/12/18 2.0 10:42 Intake and Output 07/11/18 07/11/18 07/12/18 1515:00 23:00 07:00 OutputOutput Total 1500 ml 800 ml BalanceBalance -1500 ml -800 ml Results Results 24hrs Laboratory Tests Test 07/12/18 05:39 White Blood Count 6.1 Red Blood Count 4.33 L Hemoglobin 9.7 L Hematocrit 34.4 L Mean Corpuscular Volume 79.4 L Mean Corpuscular Hemoglobin 22.4 L Mean Corpuscular Hemoglobin Concent 28.2 L Red Cell Distribution Width 16.4 H Platelet Count 211 Mean Platelet Volume 10.2 Immature Granulocytes % 0.200 Neutrophils % 66.0 Lymphocytes % 19.9 Monocytes % 10.2 Eosinophils % 2.5 Basophils % 1.2 Nucleated Red Blood Cells % 0.0 Immature Granulocytes # 0.010 Neutrophils # 4.0 Lymphocytes # 1.2 Monocytes # 0.6 Eosinophils # 0.2 Basophils # 0.1 Nucleated Red Blood Cells # 0.0 Sodium Level 138 Potassium Level 3.8 Chloride Level 98 Carbon Dioxide Level 35 H Anion Gap 5 Blood Urea Nitrogen 27 H Creatinine 0.69 Est Glomerular Filtrat Rate mL/min > 60 Glucose Level 97 Calcium Level 8.7 Medications Medication Current Medications IV Flush (NS 3 ml) 3 ml PER PROTOCOL IV ; Start 07/10/18 at 19:00 Ondansetron HCl (Zofran Inj) 4 mg Q6H PRN IV NAUSEA/VOMITING; Start 07/10/18 at 19:00 Acetaminophen (Tylenol Tab) 650 mg Q6H PRN PO .PAIN 1-3 OR TEMP; Start 07/10/18 at 19:00 Acetaminophen/ Hydrocodone Bitart ([place] (5/325)) 1 tab Q6H PRN PO .MOD PAIN 4- 6 Last administered on 07/12/18at 10:23; Admin Dose 1 TAB; Start 07/10/18 at 1 9:00 Morphine Sulfate (morphine) 2 mg Q4H PRN IV .SEVERE PAIN 7-10; Start 07/10/18 at 19:00 Docusate Sodium (Colace) 100 mg Q12H PRN PO .CONSTIPATION; Start 07/10/18 at 19:00 Magnesium Hydroxide (Milk Of Mag) 30 ml DAILY PRN PO .CONSTIPATION; Start 07/10/18 at 19:00 Pantoprazole (Protonix Tab) 40 mg DAILY@06 PO Last administered on 07/12/18at 06:14; Admin Dose 40 MG; Start 07/11/18 at 06:00 Heparin Sodium (Porcine) (Heparin (5000 Units/1ml)) 5,000 unit Q12 SC Last administered on 07/12/18at 08:46; Admin Dose 5,000 UNIT; Start 07/10/18 at 21:00 Lorazepam (Ativan) 0.5 mg Q6H PRN IV ANXIETY Last administered on 07/11/18at 22:10; Admin Dose 0.5 MG; Start 07/10/18 at 19:00 Albuterol/ Ipratropium (Duoneb) 3 ml Q4H RESP THERAPY PRN HHN SHORTNESS OF BREATH; Start 07/10/18 at 19:00 Levofloxacin/ Dextrose 150 ml @ 100 mls/hr DAILY IVPB Last administered on 07/12/18 09:12; Admin Dose 100 MLS/HR; Start 07/11/18 at 09:00 Hydralazine HCl (Apresoline) 10 mg Q6H PRN IV ELEVATED BLOOD PRESSURE; Start 07/10/18 at 19:00 Nitroglycerin (Nitroglycerin (Sl Tab) 0.4 Mg) 1 tab Q5M PRN SL ANGINA; Start 07/10/18 at 19:00 Zolpidem Tartrate (Ambien) 2.5 mg HS PRN PO INSOMNIA Last administered on 06/14 01/01at 20:55; Admin Dose 2.5 MG; Start 07/10/18 at 19:30 Carvedilol (Coreg) 6.25 mg BID PO Last administered on 07/12/18at 08:43; Admin Dose 6.25 MG; Start 07/11/18 at 21:00 Furosemide (Lasix) 40 mg BID DIURETICS IV Last administered on 07/12/18at 06:15; Admin Dose 40 MG; Start 07/12/18 at 06:00 Lisinopril (Zestril) 5 mg BID PO Last administered on 07/12/18 08:43; Admin Dose 5 MG; Start 07/11/18 at 21:00 ANGELA SHAH Jul 12, 2018 13:36
--- NOTE | 2018-07-12 17:18 | CONS ---
Consult Date/Type/Reason Admit Date/Time Jul 10, 2018 at 18:11 Initial Consult Date Date/Time of Note DATE: 07/12/18 TIME: 17:18 Subjective Cardiology follow-up progress note Subjective: Discussed with the staff and telemetry was reviewed. Patient has remained in sinus rhythm. No chest pain or pressure no palpitation breathing has significantly improved now Objective: General: no acute distress HEENT: NC/AT. pupils are equal. round. NECK: NO JVD. no stridor. CV: RRR. systolic murmur; no gallop or rubs. PULM: no wheezing or rhonchi. GI: SOFT, NT, ND, no rebound or guarding Extremity: trace B/L LE edema. no clubbing. neuro: awake and alert, OX3. Psych: calm and pleasant rectal: deferred : normal Echocardiogram shows: Normal left ventricular systolic function. Normal left ventricular cavity size. Moderate concentric left ventricular hypertrophy. Ejection fraction is visually estimated at 60 %. Tissue Doppler/Mitral Doppler indices are consistent with pseudonormalization with mildly elevated left atrial pressure (Stage II diastolic dysfunction). Normal right ventricular size. Normal right ventricular systolic function. There is moderate enlargement of left atrium. There is mild enlargement of right atrium. Mild mitral valve regurgitation. No significant valvular stenosis or regurgitation seen of remaining visualized valves. Normal pericardium with no significant pericardial effusion. Pleural effusion seen. Objective Vitals Vital Signs Date Temp Pulse Resp B/P (MAP) Pulse Ox O2 O2 Flow FiO2 Time Delivery Rate 07/12/18 62 16:22 07/12/18 98.1 18 105/61 98 Room Air 15:40 (76) 07/12/18 2.0 10:42 Intake and Output 07/11/18 07/11/18 07/12/18 1515:00 23:00 07:00 OutputOutput Total 1500 ml 800 ml BalanceBalance -1500 ml -800 ml Results/Medications Result Diagram: 07/12/18 0539 07/12/18 0539 Results 24 hrs Laboratory Tests Test 07/12/18 05:39 White Blood Count 6.1 Red Blood Count 4.33 L Hemoglobin 9.7 L Hematocrit 34.4 L Mean Corpuscular Volume 79.4 L Mean Corpuscular Hemoglobin 22.4 L Mean Corpuscular Hemoglobin Concent 28.2 L Red Cell Distribution Width 16.4 H Platelet Count 211 Mean Platelet Volume 10.2 Immature Granulocytes % 0.200 Neutrophils % 66.0 Lymphocytes % 19.9 Monocytes % 10.2 Eosinophils % 2.5 Basophils % 1.2 Nucleated Red Blood Cells % 0.0 Immature Granulocytes # 0.010 Neutrophils # 4.0 Lymphocytes # 1.2 Monocytes # 0.6 Eosinophils # 0.2 Basophils # 0.1 Nucleated Red Blood Cells # 0.0 Sodium Level 138 Potassium Level 3.8 Chloride Level 98 Carbon Dioxide Level 35 H Anion Gap 5 Blood Urea Nitrogen 27 H Creatinine 0.69 Est Glomerular Filtrat Rate mL/min > 60 Glucose Level 97 Calcium Level 8.7 Home Meds Discontinued Reported Medications Carvedilol* (Carvedilol*) 6.25 Mg Tablet, 6.25 MG PO BID, #60 TAB 02/04/18 Aspirin* (Aspirin* EC) 81 Mg Tablet.dr, 81 MG PO DAILY, TAB 02/04/18 Benazepril Hcl* (Benazepril Hcl*) 10 Mg Tablet, 10 MG PO BID, #60 TAB 02/04/18 Furosemide* (Furosemide*) 40 Mg Tablet, 40 MG PO DAILY, TAB 02/04/18 Spironolactone* (Aldactone*) 25 Mg Tablet, 25 MG PO DAILY, #30 TAB 02/04/18 Discontinued Scripts Ondansetron (Ondansetron Odt) 4 Mg Tab.rapdis, 4 MG PO Q6H PRN for NAUSEA AND/OR VOMITING, #10 TAB Prov:HERB SCOTT MD 02/04/18 Hydrocodone/Acetaminophen ([place] 10-325 Tablet) 1 Each Tablet, 1 TAB PO Q6H PRN for PAIN, #7 TAB Prov:HERB SCOTT MD 02/04/18 Medications Current Medications IV Flush (NS 3 ml) 3 ml PER PROTOCOL IV ; Start 07/10/18 at 19:00 Ondansetron HCl (Zofran Inj) 4 mg Q6H PRN IV NAUSEA/VOMITING; Start 07/10/18 at 19:00 Acetaminophen (Tylenol Tab) 650 mg Q6H PRN PO .PAIN 1-3 OR TEMP; Start 07/10/18 at 19:00 Acetaminophen/ Hydrocodone Bitart ([place] (5/325)) 1 tab Q6H PRN PO .MOD PAIN 4- 6 Last administered on 07/12/18 10:23; Admin Dose 1 TAB; Start 07/10/18 at 19:00 Morphine Sulfate (morphine) 2 mg Q4H PRN IV .SEVERE PAIN 7-10; Start 07/10/18 at 19:00 Docusate Sodium (Colace) 100 mg Q12H PRN PO .CONSTIPATION; Start 07/10/18 at 19:00 Magnesium Hydroxide (Milk Of Mag) 30 ml DAILY PRN PO .CONSTIPATION; Start 07/10/18 at 19:00 Pantoprazole (Protonix Tab) 40 mg DAILY@06 PO Last administered on 07/12/18 06:14; Admin Dose 40 MG; Start 07/11/18 at 06:00 Heparin Sodium (Porcine) (Heparin (5000 Units/1ml)) 5,000 unit Q12 SC Last administered on 07/12/18 08:46; Admin Dose 5,000 UNIT; Start 07/10/18 at 21:00 Lorazepam (Ativan) 0.5 mg Q6H PRN IV ANXIETY Last administered on 07/11/18 22:10; Admin Dose 0.5 MG; Start 07/10/18 at 19:00 Albuterol/ Ipratropium (Duoneb) 3 ml Q4H RESP THERAPY PRN HHN SHORTNESS OF BREATH; Start 07/10/18 at 19:00 Levofloxacin/ Dextrose 150 ml @ 100 mls/hr DAILY IVPB Last administered on 07/12/18 09:12; Admin Dose 100 MLS/HR; Start 07/11/18 at 09:00 Hydralazine HCl (Apresoline) 10 mg Q6H PRN IV ELEVATED BLOOD PRESSURE; Start 07/10/18 at 19:00 Nitroglycerin (Nitroglycerin (Sl Tab) 0.4 Mg) 1 tab Q5M PRN SL ANGINA; Start 07/10/18 at 19:00 Zolpidem Tartrate (Ambien) 2.5 mg HS PRN PO INSOMNIA Last administered on 07/11/18 20:55; Admin Dose 2.5 MG; Start 07/10/18 at 19:30 Carvedilol (Coreg) 6.25 mg BID PO Last administered on 07/12/18 08:43; Admin Dose 6.25 MG; Start 07/11/18 at 21:00 Furosemide (Lasix) 40 mg BID DIURETICS IV Last administered on 07/12/18at 06:15; Admin Dose 40 MG; Start 07/12/18 at 06:00 Lisinopril (Zestril) 5 mg BID PO Last administered on 07/12/18at 08:43; Admin Dose 5 MG; Start 07/11/18 at 21:00 Assessment/Plan Hospital Course (Demo Recall) Acute decompensated diastolic congestive heart failure with Preserved ejection fraction with diastolic dysfunction Hypertension, not under control with medication Mitral valve regurgitation Poor medication compliance Recommendations: Continue Coreg and WENCESLAO inhibitor -Check serial cardiac enzymes -Counseled on the importance of medication compliance. Will start on p.o. Lasix and Aldactone and will stop the IV Lasix DC planning for the next 1-2 days Check the chest x-ray tomorrow Thank you for his referral. We will continue to follow along with you until Dr. Cabrera returns on Saturday KEVIN YARBROUGH MD [facility] KEVIN YARBROUGH MD Jul 12, 2018 17:18
[2018-07-12] MEDS: FUROSEMIDE 40 MG TAB PO SCH (17:42)
[2018-07-12] MEDS: SPIRONOLACTONE 25 MG TAB PO SCH (17:49)
[2018-07-12] MEDS: ZOLPIDEM 5 MG TAB PO PRN (20:23)
[2018-07-13] VITALS (10 sets, daily range): BP systolic 110–158; BP diastolic 60–88; PULSE 59–69; RESP 16–20
[2018-07-13] MEDS: PANTOPRAZOLE (EC) 40 MG TAB PO SCH (06:00)
[2018-07-13] MEDS: FUROSEMIDE 40 MG TAB PO SCH (06:01)
[2018-07-13] MEDS: LEVOFLOXACIN 750MG/D5W (PMX) 150 ML IVPB SCH (08:15)
[2018-07-13] MEDS: LISINOPRIL 5 MG TAB PO SCH (08:15)
[2018-07-13] MEDS: SPIRONOLACTONE 25 MG TAB PO SCH (08:16)
[2018-07-13] MEDS: HEPARIN 5,000 UNIT/1 ML VIAL SC SCH ×2 (08:46→20:42)
--- NOTE | 2018-07-13 12:33 | PN ---
Date/Time of Note Date/Time of Note DATE: 07/13/18 TIME: 12:32 Assessment/Plan VTE Prophylaxis Risk score (from N[place])>0 risk: 4 SCD applied (from [place]): No SCD contraindicated: other Pharmacological prophylaxis: heparin Lines/Catheters IV Catheter Type (from [facility]): [place] Assessment/Plan Hospital Course S: Patient less shortness of breath symptoms. Seen by cardiology team yesterd ay. Tolerating diet, actually asking for more snacks. O: VS - see below PHYSICAL EXAMINATION: GENERAL: lying in bed, no acute distress. HEENT: Pupils are equal, round, react to light. Extraocular muscles are intact. NECK: Supple. No thyromegaly. LUNGS: less crackles bilaterally at the bases. No wheezes. CARDIOVASCULAR: S1 and S2 heard. No rubs, no gallops. ABDOMEN: Soft, nontender, nondistended. Normal bowel sounds. No rebound. No guarding. MUSCULOSKELETAL: 1+ pitting edema bilateral lower extremities to the mid calves. NEUROLOGIC: No focal deficits. 2D echo: Conclusions: Normal left ventricular systolic function. Normal left ventricular cavity size. Moderate concentric left ventricular hypertrophy. Ejection fraction is visually estimated at 60 %. Tissue Doppler/Mitral Doppler indices are consistent with pseudonormalization with mildly elevated left atrial pressure (Stage II diastolic dysfunction). Normal right ventricular size. Normal right ventricular systolic function. There is moderate enlargement of left atrium. There is mild enlargement of right atrium. Mild mitral valve regurgitation. No significant valvular stenosis or regurgitation seen of remaining visualized valves. Normal pericardium with no significant pericardial effusion. Pleural effusion seen. ASSESSMENT AND PLAN: 63-year-old male coming in with shortness of breath worse over the last few days with noncompliance with his medications and hypertensive urgency, signs of congestive heart failure exacerbations. 1. Shortness of breath - slowly improving - again secondary to acute decompensated diastolic congestive heart failure. Chest x-ray results noted - continue to keep the head of the bed elevated greater than 30 degrees, p.o. Lasix now on Aldactone, morphine p.r.n., oxygen as needed and nitroglycerin as needed. - Also continue beta [place], WENCESLAO inhibitor - Monitor his ins and outs, daily weights, continue PT - f/u rec's from cardiology consult 2. Hypertensive urgency- resolved. - continue current medications, follow-up cardiology recommendations 3. History of inguinal hernia. Continue to monitor for now. If there is any w orsening of his symptoms, we will consider surgery consult at that time. 4. Gastrointestinal prophylaxis, PPI. 5. Deep venous thrombosis prophylaxis, heparin subcutaneously. Result Diagram: 07/13/18 0631 07/13/18 0631 Results 24hrs Laboratory Tests Test 07/13/18 06:31 White Blood Count 6.1 Red Blood Count 4.30 L Hemoglobin 9.7 L Hematocrit 34.1 L Mean Corpuscular Volume 79.3 L Mean Corpuscular Hemoglobin 22.6 L Mean Corpuscular Hemoglobin Concent 28.4 L Red Cell Distribution Width 16.4 H Platelet Count 229 Mean Platelet Volume 10.1 Immature Granulocytes % 0.300 Neutrophils % 61.5 Lymphocytes % 22.7 Monocytes % 11.9 H Eosinophils % 2.5 Basophils % 1.1 Nucleated Red Blood Cells % 0.0 Immature Granulocytes # 0.020 Neutrophils # 3.8 Lymphocytes # 1.4 Monocytes # 0.7 Eosinophils # 0.2 Basophils # 0.1 Nucleated Red Blood Cells # 0.0 Sodium Level 138 Potassium Level 3.9 Chloride Level 97 Carbon Dioxide Level 36 H Anion Gap 5 Blood Urea Nitrogen 25 H Creatinine 0.82 Est Glomerular Filtrat Rate mL/min > 60 Glucose Level 95 Calcium Level 8.9 Magnesium Level 1.8 B-Type Natriuretic Peptide 791 H Thyroid Stimulating Hormone (TSH) 2.480 Free Thyroxine 1.18 Exam/Review of Systems Exam Vitals Vital Signs Date Temp Pulse Resp B/P (MAP) Pulse Ox O2 O2 Flow FiO2 Time Delivery Rate 07/13/18 60 12:00 07/13/18 97.7 20 110/60 92 Room Air 11:10 (77) 07/13/18 2.0 08:42 Intake and Output 07/12/18 07/12/18 07/13/18 1515:00 23:00 07:00 IntakeIntake Total 150 ml 1650 ml 1100 ml OutputOutput Total 900 ml 2200 ml 2100 ml BalanceBalance -750 ml -550 ml -1000 ml Results Results 24hrs Laboratory Tests Test 07/13/18 06:31 White Blood Count 6.1 Red Blood Count 4.30 L Hemoglobin 9.7 L Hematocrit 34.1 L Mean Corpuscular Volume 79.3 L Mean Corpuscular Hemoglobin 22.6 L Mean Corpuscular Hemoglobin Concent 28.4 L Red Cell Distribution Width 16.4 H Platelet Count 229 Mean Platelet Volume 10.1 Immature Granulocytes % 0.300 Neutrophils % 61.5 Lymphocytes % 22.7 Monocytes % 11.9 H Eosinophils % 2.5 Basophils % 1.1 Nucleated Red Blood Cells % 0.0 Immature Granulocytes # 0.020 Neutrophils # 3.8 Lymphocytes # 1.4 Monocytes # 0.7 Eosinophils # 0.2 Basophils # 0.1 Nucleated Red Blood Cells # 0.0 Sodium Level 138 Potassium Level 3.9 Chloride Level 97 Carbon Dioxide Level 36 H Anion Gap 5 Blood Urea Nitrogen 25 H Creatinine 0.82 Est Glomerular Filtrat Rate mL/min > 60 Glucose Level 95 Calcium Level 8.9 Magnesium Level 1.8 B-Type Natriuretic Peptide 791 H Thyroid Stimulating Hormone (TSH) 2.480 Free Thyroxine 1.18 Medications Medication Current Medications IV Flush (NS 3 ml) 3 ml PER PROTOCOL IV ; Start 07/10/18 at 19:00 Ondansetron HCl (Zofran Inj) 4 mg Q6H PRN IV NAUSEA/VOMITING; Start 07/10/18 at 19:00 Acetaminophen (Tylenol Tab) 650 mg Q6H PRN PO .PAIN 1-3 OR TEMP; Start 07/10/18 at 19:00 Acetaminophen/ Hydrocodone Bitart ([place] (5/325)) 1 tab Q6H PRN PO .MOD PAIN 4- 6 Last administered on 07/12/18at 10:23; Admin Dose 1 TAB; Start 07/10/18 at 19:00 Morphine Sulfate (morphine) 2 mg Q4H PRN IV .SEVERE PAIN 7-10 Last administered on 07/13/18at 11:03; Admin Dose 2 MG; Start 07/10/18 at 19:00 Docusate Sodium (Colace) 100 mg Q12H PRN PO .CONSTIPATION; Start 07/10/18 at 19:00 Magnesium Hydroxide (Milk Of Mag) 30 ml DAILY PRN PO .CONSTIPATION; Start 07/10/18 at 19:00 Pantoprazole (Protonix Tab) 40 mg DAILY@06 PO Last administered on 07/13/18 06:00; Admin Dose 40 MG; Start 07/11/18 at 06:00 Heparin Sodium (Porcine) (Heparin (5000 Units/1ml)) 5,000 unit Q12 SC Last administered on 07/13/18 08:46; Admin Dose 5,000 UNIT; Start 07/10/18 at 21:00 Lorazepam (Ativan) 0.5 mg Q6H PRN IV ANXIETY Last administered on 07/11/18 22:10; Admin Dose 0.5 MG; Start 07/10/18 at 19:00 Albuterol/ Ipratropium (Duoneb) 3 ml Q4H RESP THERAPY PRN HHN SHORTNESS OF BREATH; Start 07/10/18 at 19:00 Levofloxacin/ Dextrose 150 ml @ 100 mls/hr DAILY IVPB Last administered on 07/13/18 08:15; Admin Dose 100 MLS/HR; Start 07/11/18 at 09:00 Hydralazine HCl (Apresoline) 10 mg Q6H PRN IV ELEVATED BLOOD PRESSURE; Start 07/10/18 at 19:00 Nitroglycerin (Nitroglycerin (Sl Tab) 0.4 Mg) 1 tab Q5M PRN SL ANGINA; Start 07/10/18 at 19:00 Zolpidem Tartrate (Ambien) 2.5 mg HS PRN PO INSOMNIA Last administered on 07/12/18 20:23; Admin Dose 2.5 MG; Start 07/10/18 at 19:30 Carvedilol (Coreg) 6.25 mg BID PO Last administered on 07/13/18 08:16; Admin Dose 6.25 MG; Start 07/11/18 at 21:00 Lisinopril (Zestril) 5 mg BID PO Last administered on 07/13/18 08:15; Admin Dose 5 MG; Start 07/11/18 at 21:00 Spironolactone (Aldactone) 25 mg DAILY PO Last administered on 07/13/18 08:16; Admin Dose 25 MG; Start 07/12/18 at 17:30 Furosemide (Lasix) 40 mg BID DIURETICS PO Last administered on 07/13/18 06:01; Admin Dose 40 MG; Start 07/12/18 at 18:00 ANGELA SHAH Jul 13, 2018 12:33
--- NOTE | 2018-07-13 17:26 | CONS ---
Consult Date/Type/Reason Admit Date/Time Jul 10, 2018 at 18:11 Initial Consult Date Date/Time of Note DATE: 07/13/18 TIME: 17:25 Subjective Cardiology follow-up progress note Subjective: Discussed with the staff and telemetry was reviewed. Patient has remained in sinus rhythm. No chest pain or pressure no palpitation breathing has significantly improved now and is back to normal Objective: General: no acute distress HEENT: NC/AT. pupils are equal. round. NECK: NO JVD. no stridor. CV: RRR. systolic murmur; no gallop or rubs. PULM: no wheezing or rhonchi. GI: SOFT, NT, ND, no rebound or guarding Extremity: trace B/L LE edema. no clubbing. neuro: awake and alert, OX3. Psych: calm and pleasant rectal: deferred : normal Echocardiogram shows: Normal left ventricular systolic function. Normal left ventricular cavity size. Moderate concentric left ventricular hypertrophy. Ejection fraction is visually estimated at 60 %. Tissue Doppler/Mitral Doppler indices are consistent with pseudonormalization with mildly elevated left atrial pressure (Stage II diastolic dysfunction). Normal right ventricular size. Normal right ventricular systolic function. There is moderate enlargement of left atrium. There is mild enlargement of right atrium. Mild mitral valve regurgitation. No significant valvular stenosis or regurgitation seen of remaining visualized valves. Normal pericardium with no significant pericardial effusion. Pleural effusion seen. Objective Vitals Vital Signs Date Temp Pulse Resp B/P (MAP) Pulse Ox O2 O2 Flow FiO2 Time Delivery Rate 07/13/18 2.0 16:45 07/13/18 69 16:00 07/13/18 98.5 20 158/88 94 Room Air 15:55 (111) Intake and Output 07/12/18 07/12/18 07/13/18 1515:00 23:00 07:00 IntakeIntake Total 150 ml 1650 ml 1100 ml OutputOutput Total 900 ml 2200 ml 2100 ml BalanceBalance -750 ml -550 ml -1000 ml Results/Medications Result Diagram: 07/13/1831 07/13/18 0631 Results 24 hrs Laboratory Tests Test 07/13/18 06:31 White Blood Count 6.1 Red Blood Count 4.30 L Hemoglobin 9.7 L Hematocrit 34.1 L Mean Corpuscular Volume 79.3 L Mean Corpuscular Hemoglobin 22.6 L Mean Corpuscular Hemoglobin Concent 28.4 L Red Cell Distribution Width 16.4 H Platelet Count 229 Mean Platelet Volume 10.1 Immature Granulocytes % 0.300 Neutrophils % 61.5 Lymphocytes % 22.7 Monocytes % 11.9 H Eosinophils % 2.5 Basophils % 1.1 Nucleated Red Blood Cells % 0.0 Immature Granulocytes # 0.020 Neutrophils # 3.8 Lymphocytes # 1.4 Monocytes # 0.7 Eosinophils # 0.2 Basophils # 0.1 Nucleated Red Blood Cells # 0.0 Sodium Level 138 Potassium Level 3.9 Chloride Level 97 Carbon Dioxide Level 36 H Anion Gap 5 Blood Urea Nitrogen 25 H Creatinine 0.82 Est Glomerular Filtrat Rate mL/min > 60 Glucose Level 95 Calcium Level 8.9 Magnesium Level 1.8 B-Type Natriuretic Peptide 791 H Thyroid Stimulating Hormone (TSH) 2.480 Free Thyroxine 1.18 Home Meds Discontinued Reported Medications Carvedilol* (Carvedilol*) 6.25 Mg Tablet, 6.25 MG PO BID, #60 TAB 02/04/18 Aspirin* (Aspirin* EC) 81 Mg Tablet.dr, 81 MG PO DAILY, TAB 02/04/18 Benazepril Hcl* (Benazepril Hcl*) 10 Mg Tablet, 10 MG PO BID, #60 TAB 02/04/18 Furosemide* (Furosemide*) 40 Mg Tablet, 40 MG PO DAILY, TAB 02/04/18 Spironolactone* (Aldactone*) 25 Mg Tablet, 25 MG PO DAILY, #30 TAB 02/04/18 Discontinued Scripts Ondansetron (Ondansetron Odt) 4 Mg Tab.rapdis, 4 MG PO Q6H PRN for NAUSEA AND/OR VOMITING, #10 TAB Prov:HERB SCOTT MD 02/04/18 Hydrocodone/Acetaminophen ([place] 10-325 Tablet) 1 Each Tablet, 1 TAB PO Q6H PRN for PAIN, #7 TAB Prov:HERB SCOTT MD 02/04/18 Medications Current Medications IV Flush (NS 3 ml) 3 ml PER PROTOCOL IV ; Start 07/10/18 at 19:00 Ondansetron HCl (Zofran Inj) 4 mg Q6H PRN IV NAUSEA/VOMITING; Start 07/10/18 at 19:00 Acetaminophen (Tylenol Tab) 650 mg Q6H PRN PO .PAIN 1-3 OR TEMP; Start 07/10/18 at 19:00 Acetaminophen/ Hydrocodone Bitart ([place] (5/325)) 1 tab Q6H PRN PO .MOD PAIN 4- 6 Last administered on 07/12/18 10:23; Admin Dose 1 TAB; Start 07/10/18 at 19:00 Morphine Sulfate (morphine) 2 mg Q4H PRN IV .SEVERE PAIN 7-10 Last administered on 07/13/18 11:03; Admin Dose 2 MG; Start 07/10/18 at 19:00 Docusate Sodium (Colace) 100 mg Q12H PRN PO .CONSTIPATION; Start 07/10/18 at 19:00 Magnesium Hydroxide (Milk Of Mag) 30 ml DAILY PRN PO .CONSTIPATION; Start 07/10/18 at 19:00 Pantoprazole (Protonix Tab) 40 mg DAILY@06 PO Last administered on 07/13/18 06:00; Admin Dose 40 MG; Start 07/11/18 at 06:00 Heparin Sodium (Porcine) (Heparin (5000 Units/1ml)) 5,000 unit Q12 SC Last administered on 07/13/18 08:46; Admin Dose 5,000 UNIT; Start 07/10/18 at 21:00 Lorazepam (Ativan) 0.5 mg Q6H PRN IV ANXIETY Last administered on 07/11/18 22 :10; Admin Dose 0.5 MG; Start 07/10/18 at 19:00 Albuterol/ Ipratropium (Duoneb) 3 ml Q4H RESP THERAPY PRN HHN SHORTNESS OF BREATH; Start 07/10/18 at 19:00 Hydralazine HCl (Apresoline) 10 mg Q6H PRN IV ELEVATED BLOOD PRESSURE; Start 07/10/18 at 19:00 Nitroglycerin (Nitroglycerin (Sl Tab) 0.4 Mg) 1 tab Q5M PRN SL ANGINA; Start 07/10/18 at 19:00 Zolpidem Tartrate (Ambien) 2.5 mg HS PRN PO INSOMNIA Last administered on 07/12/18 20:23; Admin Dose 2.5 MG; Start 07/10/18 at 19:30 Carvedilol (Coreg) 6.25 mg BID PO Last administered on 07/13/18 08:16; Admin Dose 6.25 MG; Start 07/11/18 at 21:00 Lisinopril (Zestril) 5 mg BID PO Last administered on 07/13/18at 08:15; Admin Dose 5 MG; Start 07/11/18 at 21:00 Spironolactone (Aldactone) 25 mg DAILY PO Last administered on 07/13/18at 08:16; Admin Dose 25 MG; Start 07/12/18 at 17:30 Furosemide (Lasix) 40 mg BID DIURETICS PO Last administered on 07/13/18at 06:01; Admin Dose 40 MG; Start 07/12/18 at 18:00 Levofloxacin (Levaquin) 750 mg DAILY@06 PO ; Start 07/14/18 at 06:00 Assessment/Plan Hospital Course (Demo Recall) Acute decompensated diastolic congestive heart failure with Preserved ejection fraction with diastolic dysfunction Hypertension, not under control with medication Mitral valve regurgitation Poor medication compliance Recommendations: Continue Coreg and WENCESLAO inhibitor -Counseled on the importance of medication compliance. change to po lasix daily only DC planning Thank you for his referral. KEVIN YARBROUGH MD [facility] KEVIN YARBROUGH MD Jul 13, 2018 17:26
[2018-07-13] MEDS: LISINOPRIL 10 MG TAB PO SCH (20:08)
[2018-07-13] MEDS: ZOLPIDEM 5 MG TAB PO PRN (20:15)
[2018-07-14] VITALS (8 sets, daily range): BP systolic 119–131; BP diastolic 56–77; PULSE 61–73; RESP 18
[2018-07-14] MEDS ORDERED: LEVOFLOXACIN 750 MG TABLET PO SCH (06:00)
[2018-07-14] MEDS: PANTOPRAZOLE (EC) 40 MG TAB PO SCH (06:34)
[2018-07-14] MEDS: SPIRONOLACTONE 25 MG TAB PO SCH (08:19)
[2018-07-14] MEDS: LISINOPRIL 10 MG TAB PO SCH (08:21)
[2018-07-14] MEDS ORDERED: FUROSEMIDE 40 MG TAB PO SCH (09:00)
[2018-07-14] MEDS: HEPARIN 5,000 UNIT/1 ML VIAL SC SCH (09:55)
[2018-07-14] MEDS ORDERED: SPIR25TA PO (11:04)
[2018-07-14] MEDS ORDERED: FURO40TA4 PO (11:04)
[2018-07-14] MEDS ORDERED: LISI10TA2 PO (11:04)
[2018-07-14] MEDS ORDERED: CARV3.1260 PO (11:04)
--- NOTE | 2018-07-14 11:06 | PDOCDIS ---
Discharge Instructions DIAGNOSIS Discharge Diagnosis Heart failure exacerbation Chronic diastolic congestive heart failure CONDITION [id number] Patient Condition: [id number] Good HOME CARE INSTRUCTIONS: [id number] Diet Instructions: [id number] Reduced Sodium ACTIVITY: [id number] Activity Restrictions: [id number] No Restrictions FOLLOW UP/APPOINTMENTS Follow-up Plan 1. Go through your insurance to get a primary care doctor. Make an appointment in 1-2 weeks. 2. Take all medications as prescribed. You will need to be on blood pressure medications for life. You will likely need a diuretic for your heart failure for life. 3. Return to the emergency room if you cannot catch your breath at rest. MAXINE ENGLAND MD Jul 14, 2018 11:06
--- NOTE | 2018-07-14 11:51 | CONS ---
Assessment/Plan Cardiology NYHA: II Heart Failure Type: Acute on Chronic Heart Failure Type: Diastolic Assessment/Plan Hospital Course (Demo Recall) Acute decompensated diastolic congestive heart failure Preserved ejection fraction with diastolic dysfunction Hypertension Mitral valve regurgitation Poor medication compliance -Patient continues to improve. Patient is on oral diuretic regimen. Continue his renal function permits -As mentioned, counseled on importance of medication compliance as well as lifestyle and diet. -DC planning Consultation Date/Type/Reason Admit Date/Time Jul 10, 2018 at 18:11 Initial Consult Date Type of Consult Cardiology Date/Time of Note DATE: 07/14/18 TIME: 11:50 24 HR Interval Summary Free Text/Dictation Feeling much better, denies current shortness of breath, palpitations or chest pain Exam/Review of Systems Vital Signs Vitals Vital Signs Date Temp Pulse Resp B/P (MAP) Pulse Ox O2 O2 Flow FiO2 Time Delivery Rate 07/14/18 2.0 10:30 07/14/18 94 08:45 07/14/18 73 08:01 07/14/18 99.4 18 131/69 07:44 (89) 07/14/18 Room Air 04:00 Intake and Output 07/13/18 07/13/18 07/14/18 1414:59 22:59 06:59 IntakeIntake Total 150 ml 780 ml OutputOutput Total 2900 ml BalanceBalance 150 ml -2120 ml Exam Constitutional: alert, oriented (No apparent distress) Respiratory: other (Coarse breath sounds bilaterally, no wheezing) Cardiovascular: regular rate and rhythm (S1-S2 heard) Gastrointestinal: soft, non-tender, bowel sounds Extremities: edema Labs Result Diagram: 07/14/18 0634 07/14/18 0634 Results 24hrs Laboratory Tests Test 07/14/18 06:34 White Blood Count 6.0 Red Blood Count 4.36 L Hemoglobin 9.7 L Hematocrit 34.3 L Mean Corpuscular Volume 78.7 L Mean Corpuscular Hemoglobin 22.2 L Mean Corpuscular Hemoglobin Concent 28.3 L Red Cell Distribution Width 16.3 H Platelet Count 222 Mean Platelet Volume 8.7 Immature Granulocytes % 0.200 Neutrophils % 61.0 Lymphocytes % 24.3 Monocytes % 11.5 H Eosinophils % 2.0 Basophils % 1.0 Nucleated Red Blood Cells % 0.0 Immature Granulocytes # 0.010 Neutrophils # 3.7 Lymphocytes # 1.5 Monocytes # 0.7 Eosinophils # 0.1 Basophils # 0.1 Nucleated Red Blood Cells # 0.0 Sodium Level 139 Potassium Level 4.0 Chloride Level 101 Carbon Dioxide Level 35 H Anion Gap 3 L Blood Urea Nitrogen 27 H Creatinine 0.91 Est Glomerular Filtrat Rate mL/min > 60 Glucose Level 116 Calcium Level 9.1 Medications Medications Current Medications IV Flush (NS 3 ml) 3 ml PER PROTOCOL IV ; Start 07/10/18 at 19:00 Ondansetron HCl (Zofran Inj) 4 mg Q6H PRN IV NAUSEA/VOMITING; Start 07/10/18 at 19:00 Acetaminophen (Tylenol Tab) 650 mg Q6H PRN PO .PAIN 1-3 OR TEMP; Start 07/10/18 at 19:00 Acetaminophen/ Hydrocodone Bitart ([place] (5/325)) 1 tab Q6H PRN PO .MOD PAIN 4- 6 Last administered on 07/12/18at 10:23; Admin Dose 1 TAB; Start 07/10/18 at 19:00 Morphine Sulfate (morphine) 2 mg Q4H PRN IV .SEVERE PAIN 7-10 Last administered on 07/13/18at 11:03; Admin Dose 2 MG; Start 07/10/18 at 19:00 Docusate Sodium (Colace) 100 mg Q12H PRN PO .CONSTIPATION; Start 07/10/18 at 19:00 Magnesium Hydroxide (Milk Of Mag) 30 ml DAILY PRN PO .CONSTIPATION; Start 07/10/18 at 19:00 Pantoprazole (Protonix Tab) 40 mg DAILY@06 PO Last administered on 07/14/18at 06:34; Admin Dose 40 MG; Start 07/11/18 at 06:00 Heparin Sodium (Porcine) (Heparin (5000 Units/1ml)) 5,000 unit Q12 SC Last administered on 07/14/18at 09:55; Admin Dose 5,000 UNIT; Start 07/10/18 at 21:00 Lorazepam (Ativan) 0.5 mg Q6H PRN IV ANXIETY Last administered on 07/11/18at 22:10; Admin Dose 0.5 MG; Start 07/10/18 at 19:00 Albuterol/ Ipratropium (Duoneb) 3 ml Q4H RESP THERAPY PRN HHN SHORTNESS OF BREATH; Start 07/10/18 at 19:00 Hydralazine HCl (Apresoline) 10 mg Q6H PRN IV ELEVATED BLOOD PRESSURE; Start 07/10/18 at 19:00 Nitroglycerin (Nitroglycerin (Sl Tab) 0.4 Mg) 1 tab Q5M PRN SL ANGINA; Start 07/10/18 at 19:00 Zolpidem Tartrate (Ambien) 2.5 mg HS PRN PO INSOMNIA Last administered on 07/13/18at 20:15; Admin Dose 2.5 MG; Start 07/10/18 at 19:30 Carvedilol (Coreg) 6.25 mg BID PO Last administered on 07/14/18 08:20; Admin Do se 6.25 MG; Start 07/11/18 at 21:00 Spironolactone (Aldactone) 25 mg DAILY PO Last administered on 07/14/18 08:19; Admin Dose 25 MG; Start 07/12/18 at 17:30 Levofloxacin (Levaquin) 750 mg DAILY@06 PO Last administered on 07/14/18at 06:34; Admin Dose 750 MG; Start 07/14/18 at 06:00 Furosemide (Lasix) 40 mg DAILY PO Last administered on 07/14/18 08:21; Admin Dose 40 MG; Start 07/14/18 at 09:00 Lisinopril (Zestril) 10 mg BID PO Last administered on 07/14/18 08:21; Admin Dose 10 MG; Start 07/13/18 at 21:00 Brenton Odom DO Jul 14, 2018 11:51
--- NOTE | 2018-07-14 18:09 | DS ---
Date/Time of Note Date/Time of Note DATE: 07/14/18 TIME: 18:06 Discharge Summary Admission/Discharge Info Admit Date/Time Jul 10, 2018 at 18:11 Discharge Date/Time Jul 14, 2018 at 14:42 Discharge Diagnosis Heart failure exacerbation Chronic diastolic congestive heart failure Patient Condition: Good Consults Dr. Odom, cardiology Procedures None Hx of Present Illness CHIEF COMPLAINT: Shortness of breath. HISTORY OF PRESENT ILLNESS: A 63-year-old male with past medical history of hypertension, likely CHF, noncompliant with medications for the last 3 months, inguinal hernia, who has been having shortness of breath. The symptoms have been going on for the last 3 to 4 weeks, but getting worse over the last couple of days. He has noticed some more swelling in his lower extremities. He says he was hospitalized, looks like at either [facility] or [facility] back in 02/2018 for what he says is hypertension and likely CHF, although he denies being told he has ever had CHF. No prior history of any stroke or heart attacks. Presently, no upper or lower GI bleeding. No fevers or chills. No nausea, vomiting. No diarrhea or constipation. No chest pain. He does have positive PND and likely positive orthopnea. When he came in today on his chest x-ray he had moderate to severe cardiomegaly with mild aortic calcifications, but no evidence of any acute cardiopulmonary disease; however he does have 2+ swelling in his lower extremities and his BNP was elevated at 2200, so he came in, signs of likely CHF exacerbation. He also had a blood pressure of 192/106 and signs of hypertensive urgency. Again, he has not been taking any medicines for the last 3 months. PAST MEDICAL HISTORY: As stated above. ALLERGIES: NO KNOWN DRUG ALLERGIES. HOME MEDICATIONS: The patient did bring in incomplete list which did include: 1. Lasix looks like 40 mg. 2. Coreg 6.25 mg b.i.d. 3. Benazepril 10 mg. 4. Advair 250/50 inhaled b.i.d. Again he has not been taking his medicines for the last 3 months. Hospital Course For his shortness of breath, a chest XR was done showing cardiomegaly and mild pulmonary edema. He was started on bumex IV and had good response. Now breathing comfortably on room air. Restarted on ACEi and beta [place] for his hypertension. At discharge he was encouraged to follow up with a primary care doctor and also Dr. Odom. Home Meds Active Scripts Furosemide* (Furosemide*) 40 Mg Tablet, 40 MG PO DAILY, #30 TAB Prov:MAXINE ENGLAND MD 07/14/18 Spironolactone* (Aldactone*) 25 Mg Tablet, 25 MG PO DAILY, #30 TAB Prov:MAXINE ENGLAND MD 07/14/18 Lisinopril* (Lisinopril*) 10 Mg Tablet, 10 MG PO BID, #60 TAB Prov:MAXINE ENGLAND MD 07/14/18 Carvedilol* (Carvedilol*) 3.125 Mg Tablet, 6.25 MG PO BID, #60 TAB Prov:MAXINE ENGLAND MD 07/14/18 Discontinued Reported Medications Carvedilol* (Carvedilol*) 6.25 Mg Tablet, 6.25 MG PO BID, #60 TAB 02/04/18 Aspirin* (Aspirin* EC) 81 Mg Tablet.dr, 81 MG PO DAILY, TAB 02/04/18 Benazepril Hcl* (Benazepril Hcl*) 10 Mg Tablet, 10 MG PO BID, #60 TAB 02/04/18 Furosemide* (Furosemide*) 40 Mg Tablet, 40 MG PO DAILY, TAB 02/04/18 Spironolactone* (Aldactone*) 25 Mg Tablet, 25 MG PO DAILY, #30 TAB 02/04/18 Discontinued Scripts Ondansetron (Ondansetron Odt) 4 Mg Tab.rapdis, 4 MG PO Q6H PRN for NAUSEA AND/OR VOMITING, #10 TAB Prov:HERB SCOTT MD 02/04/18 Hydrocodone/Acetaminophen (Bryan 10-325 Tablet) 1 Each Tablet, 1 TAB PO Q6H PRN for PAIN, #7 TAB Prov:HERB SCOTT MD 02/04/18 Follow-up Plan 1. Go through your insurance to get a primary care doctor. Make an appointment in 1-2 weeks. 2. Take all medications as prescribed. You will need to be on blood pressure medications for life. You will likely need a diuretic for your heart failure for life. 3. Return to the emergency room if you cannot catch your breath at rest. Primary Care Provider Care Physician No Primary Time spent on discharge: > 30 minutes Pending Labs Laboratory Tests Test 07/14/18 06:34 White Blood Count 6.0 10^3/ul (4.8-10.8) Red Blood Count 4.36 10^6/ul (4.70-6.10) Hemoglobin 9.7 g/dl (14.0-18.0) Hematocrit 34.3 % (42.0-52.0) Mean Corpuscular Volume 78.7 fl (82.0-101.0) Mean Corpuscular Hemoglobin 22.2 pg (29.0-33.0) Mean Corpuscular Hemoglobin Concent 28.3 g/dl (32.0-37.0) Red Cell Distribution Width 16.3 % (11.5-14.5) Platelet Count 222 10^3/UL (140-415) Mean Platelet Volume 8.7 fl (7.4-10.4) Immature Granulocytes % 0.200 % (0.001-0.429) Neutrophils % 61.0 % (39.0-77.0) Lymphocytes % 24.3 % (15.0-51.0) Monocytes % 11.5 % (0.0-11.0) Eosinophils % 2.0 % (0.0-7.0) Basophils % 1.0 % (0.0-2.0) Nucleated Red Blood Cells % 0.0 /100WBC (0.0-0.0) Immature Granulocytes # 0.010 10^3/ul (0.0-0.031) Neutrophils # 3.7 10^3/ul (1.6-7.5) Lymphocytes # 1.5 10^3/ul (0.8-2.9) Monocytes # 0.7 10^3/ul (0.3-0.9) Eosinophils # 0.1 10^3/ul (0.0-0.5) Basophils # 0.1 10^3/ul (0.0-0.1) Nucleated Red Blood Cells # 0.0 10^3/ul (0.0-0.0) Sodium Level 139 mmol/L (135-144) Potassium Level 4.0 mmol/L (3.5-5.1) Chloride Level 101 mmol/L (97-110) Carbon Dioxide Level 35 mmol/L (21-31) Anion Gap 3 (5-13) Blood Urea Nitrogen 27 mg/dl (7-20) Creatinine 0.91 mg/dl (0.61-1.24) Est Glomerular Filtrat Rate mL/min > 60 mL/min (>60) Glucose Level 116 mg/dl (70-220) Calcium Level 9.1 mg/dl (8.4-10.2) MAXINE ENGLAND MD Jul 14, 2018 18:09
== END 2018-07-14 14:42 | disposition home or self-care (01) | DRG 293 ==
LOC: E/R 15:55 → MS3 18:11 → TEL 07-11 16:34
PROVIDERS: ADMIT Hospitalist; ATTEND Internal Medicine
DX: I11.0 Hypertensive heart disease with heart failure (principal); I50.33 Acute on chronic diastolic (congestive) heart failure; I34.0 Nonrheumatic mitral (valve) insufficiency; I16.0 Hypertensive urgency; Z91.14 Patient's other noncompliance with medication regimen
CPT/HCPCS: 36415; 71045; 80048; 80053; 80061; 82550; 82553; 83036; 83690; 83735; 83880; 84100; 84439; 84443; 84484; 85025; 92610; 93005; 93306; 96374; 96375; J1644; J1940; J1956; J2060; J2270; J3475